=== PATIENT | male | born 1955 | race Caucasian/White ===

== ENCOUNTER 2023-05-17 09:19 | Day surgery (SDC) | payer MEDICARE, OTHER ==
[~2023-05-17] VITALS: Ht 182.9 cm; Wt 108.4 kg
[2023-05-17] VITALS (8 sets, daily range): BP systolic 127–193; BP diastolic 85–144
[2023-05-17] MEDS ORDERED: AMLO10 PO (09:58)
[2023-05-17] MEDS ORDERED: Aspir 8181 MG PO (09:58)
[2023-05-17] MEDS ORDERED: ATOR80 PO (10:01)
[2023-05-17] MEDS ORDERED: FURO40 PO (10:02)
[2023-05-17] MEDS ORDERED: INDO50 PO (10:04)
[2023-05-17] MEDS ORDERED: LOSA50 PO (10:05)
[2023-05-17] MEDS ORDERED: POTA10T PO (10:06)
--- NOTE | 2023-05-17 11:49 | NUR ---
PATIENT RETURNED FROM THE [facility] AT 1135 RIGHT GROIN ANGIOSEAL WITH DRESSSING CDI, NO BLEEDING, NO HEMATOMA. NO PAIN NOTED. PLACED ON THE MONITOR, CALL LIGHT IN REACH. DIET ORDERED. [facility].
--- NOTE | 2023-05-17 12:58 | NUR ---
PATIENT UP OOB. RIGHT GROIN SITE UNCHANGED, STABLE, NO BLEEDING. VVS. NIBP ELEVATED BUT DUE TO LACK OF MEDS TAKEN THIS A.M. WILL TAKE HIS REGULARLY SCHADULED MEDS WHEN HE ARRIVES HOME. REVIEWED DISCHARGE INSTRUCTIONS WITH THE PATIENT AND CALLED HIS , HIS RIDE HOME.
--- NOTE | 2023-05-17 13:05 | NUR ---
PATIENT PIV REMOVED, CATH TIP INTACT AND PRESSURE DRESSING APPLIED.
--- NOTE | 2023-05-17 13:23 | NUR ---
PATIENT'S HERE, [facility] DISCHARGED HOME WITH INSTRUCTIONS AND [employer]OX [employer]ER.
== END 2023-05-17 13:00 | disposition home or self-care (01) ==
LOC: MHTC 09:19
DX: I70.1 Atherosclerosis of renal artery (principal); I10 Essential (primary) hypertension; E78.5 Hyperlipidemia, unspecified; M10.9 Gout, unspecified; G47.33 Obstructive sleep apnea (adult) (pediatric)
CPT/HCPCS: 36252; 75625; 76937; 99152; 99153; C1760; C1769; C1887; C1894; J1644; J2250; J3010; J7030; J7050; Q9967